=== PATIENT | female | born 1985 | race African-American/Black ===

== ENCOUNTER 2017-06-13 09:17 | Emergency (ER) | payer MEDICAID ==
[~2017-06-13] VITALS: Ht 162.6 cm; Wt 80.0 kg
[2017-06-13 09:19] VITALS: BP 137/92
[2017-06-13] MEDS ORDERED: KETOROLAC 60MG/2ML VIAL IM ONE (10:00)
[2017-06-13] MEDS ORDERED: IBUPROFEN 600MG TABLET PO ONE (10:30)
== END 2017-06-13 10:28 | disposition home or self-care (01) ==
LOC: ER 09:30
DX: M54.5 Low back pain (principal); J45.909 Unspecified asthma, uncomplicated; Z87.891 Personal history of nicotine dependence
CPT/HCPCS: 99283; J1885; Z7610

== ENCOUNTER 2018-09-13 08:11 | Emergency (ER) | payer MEDICAID ==
[~2018-09-13] VITALS: Ht 162.6 cm; Wt 87.0 kg
[2018-09-13 08:55] LABS: CLARITY URINE TURBID (CLEAR); COLOR URINE DARK YELLOW (YELLOW); KETONES URINE TRACE (NEGATIVE); LEUKOCYTE ESTERASE URINE 3+ (NEGATIVE); NITRITE URINE NEGATIVE (NEGATIVE); OCCULT BLOOD URINE 2+ (NEGATIVE); PROTEIN URINE 2+ (NEGATIVE); SPECIFIC GRAVITY URINE 1.026 (1.005-1.030)
[2018-09-13 09:42] VITALS: BP 147/99
== END 2018-09-13 09:44 | disposition home or self-care (01) ==
LOC: ER 08:21
DX: N39.0 Urinary tract infection, site not specified (principal); F17.210 Nicotine dependence, cigarettes, uncomplicated; Z98.890 Other specified postprocedural states
CPT/HCPCS: 81025; 99283

== ENCOUNTER 2019-03-01 20:53 | Emergency (ER) | payer MEDICAID ==
[~2019-03-01] VITALS: Ht 162.6 cm; Wt 81.1 kg
[2019-03-01] MEDS ORDERED: MECLIZINE 25MG TABLET PO ONE (23:45)
[2019-03-02 00:07] VITALS: BP 142/78
== END 2019-03-02 00:07 | disposition home or self-care (01) ==
LOC: ER 20:53
DX: R42 Dizziness and giddiness (principal); F17.290 Nicotine dependence, other tobacco product, uncomplicated; J45.909 Unspecified asthma, uncomplicated; Z98.890 Other specified postprocedural states
CPT/HCPCS: 93005; 99283; J8597